=== PATIENT | female | born 1995 | race Two or more races ===

== ENCOUNTER 2020-07-03 07:51 | Outpatient (CLI) | payer OTHER | END 2020-07-03 08:00 | disposition home or self-care (01) | LOC: SONOGRAMA 07:51 | PROVIDERS: ATTEND Pathology Anatomic Pathology & Clinical Pathology | DX: E04.1 Nontoxic single thyroid nodule (principal) ==

== ENCOUNTER 2021-02-26 08:47 | Outpatient (CLI) | payer OTHER | END 2021-02-26 08:49 | disposition home or self-care (01) | LOC: SONOGRAMA 08:47 | PROVIDERS: ATTEND Pathology Anatomic Pathology & Clinical Pathology | DX: E04.2 Nontoxic multinodular goiter (principal) ==